=== PATIENT | female | born 2000 | race Caucasian/White ===

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

== ENCOUNTER 2022-01-08 15:12 | Outpatient (RCR) | payer OTHER, SELFPAY ==
--- NOTE | ~2022-01-08 | US_ITS ---
EXAMINATION: US OB BPP wo non-stress DATE: 01/08/2022 17:33 INDICATION: Nonreactive stress test in office. TECHNIQUE: Real-time ultrasound of the pelvis was performed. COMPARISON: 12/02/2021. FINDINGS: There is a single living fetus in vertex presentation, longitudinal lie. The placenta is anterior. F etal heart rate is 134 beats per minute (bpm). The amniotic fluid index is 12.9 cm (5th to 95th perce ntile is 7.7 to 24.9 cm). Biophysical profile performed by the technologist: breathing (30 sec sustained breathing in 30 minutes): 2 out of 2 movement (3 gross body movements in 30 minutes: 2 out of 2 tone (one episode of zhlotzb-fkwvsxrdm-ifdzbln limb movement): 2 out of 2 Amniotic fluid pocket (2 cm): 2 out of 2 Total score: 8 out of 8 IMPRESSION: 1. Single living fetus in vertex presentation. 2. Normal KARTIK. 3. Biophysical profile 8 out of 8. Reviewed, dictated and finalized at location K.
[2022-01-08 16:26] VITALS: BP 110/65; PULSE 77
== END 2022-04-08 23:59 | disposition home or self-care (01) ==
LOC: ANHOBOP 15:12
PROVIDERS: PCP Family Medicine; Visit Provider Advanced Practice Midwife
DX: O26.893 Other specified pregnancy related conditions, third trimester (principal); Z3A.36 36 weeks gestation of pregnancy
CPT/HCPCS: 59025; 76819

== ENCOUNTER 2022-01-17 11:11 | Outpatient (CLI) | payer OTHER, SELFPAY ==
[2022-01-17 12:00] VITALS: TEMP 36.6
--- NOTE | 2022-01-17 12:29 | PC.NURSE ---
Timbo HERNANDEZ informed of pt's arrival with c/o being in bed around 0900 this morning and feeling a sharp shooting pain that started in her groin and moved down the front of both legs- this happened twice and now pt feels some tingling in both her legs. Pt also noted some vaginal wetness around 1000 this am; ROM plus was negative. Pt having contractions she feels as non-painful tightening; denies any change from the contractions she has been having at home. NST reactive. Order received to discharge pt to home.
[2022-01-17 12:41] VITALS: BP 103/61; PULSE 74
== END 2022-01-17 12:42 | disposition home or self-care (01) ==
LOC: ANHOBOP 12:44 → ANHOBPP 12:46
PROVIDERS: PCP Family Medicine; Visit Provider Advanced Practice Midwife
DX: O42.90 Premature rupture of membranes, unspecified as to length of time between rupture and onset of labor, unspecified weeks of gestation (principal); Z3A.00 Weeks of gestation of pregnancy not specified
CPT/HCPCS: 59025; 84112; 99199

== ENCOUNTER 2022-01-20 10:45 | Inpatient (IN) | payer OTHER, SELFPAY ==
[2022-01-20] VITALS (149 sets, daily range): BP systolic 91–131; BP diastolic 33–93; PULSE 48–200; TEMP 36.3–37; O2SAT 93–100; BMI 31.4
--- OUTSIDE RECORDS SUMMARY | 2022-01-20 11:20 | XMS_ITS ---
:2002 Author Care Team Providers Name Role Phone MASTER FARIAS MD Primary Care Provider [phone] Allergies Code Code System Name Reaction Severity Status Onset 723 RxNorm Amoxicillin ? ? Active ? 1191 RxNorm Aspirin ? ? Active ? 666536 RxNorm Keflex ? ? Active ? 357100 RxNorm [place] ? ? Active ? 713493 RxNorm Prunes ? ? Active ? Sulfa (Sulfonamide ? ? Active ? Antibiotics) 1529974 RxNorm [place] ? ? Deactivated ? Medications Name Status Start Date Stop Date ? ? albuterol sulfate concentrate 5 mg/mL(0.5 %) solution for nebulization Completed 08/28/2015 06/25/2021 inhale 0.5 milliliter by inhalation route 3- 4 times every day via nebulizer albuterol sulfate HFA 90 mcg/actuation aerosol inhaler Active ? Not available INHALE 2 PUFFS BY MOUTH 4 TIMES A DAY NEEDED. USE 30 MINUTES PRIOR TO PE azithromycin 250 mg tablet Completed ? 07/25 carbamazepine 200 mg tablet Completed 08/28/201504/2021 take 1 tablet by oral route every 12 hours carbamazepine ER 200 mg capsule,extended release [id number] Comp leted ? 07/25/2021 PLEASE SEE ATTACHED FOR DETAILED DIRECTIONS cyclobenzaprine 10 mg tablet Completed ? TAKE 1 TABLET BY MOUTH EVERY 8 HOURS Depo-Provera 150 mg/mL intramuscular syringe Completed 06/201506/25/2021 inject 1 milliliter by intramuscular route every 3 months diazepam 12.5 mg-15 mg-17.5 mg-20 mg rectal kit Completed ? 07/25/2021 INSERT 17.5 MG INTO THE RECTUM NEEDED (FOR SEIZURE 5 MINUTES ) hydrocodone 5 mg-acetaminophen 325 mg tablet Active ? Not available TAKE 1 TABLET BY MOUTH EVERY 6 HOURS NEEDED
--- OUTSIDE RECORDS SUMMARY | 2022-01-20 11:20 | XMS_ITS | Encounter Summary ---
:2002 Author Care Team Providers Name Role Phone Coral Ching MD Primary Care Provider [phone] Reason for Visit OB visit OB [id number] EDC 02/01/2022 LMP 04/27/2021 Assessment and Plan Assessment Note Patient is __37_weeks . Discuss ed plan. 1. Routine care Discussion Note: None recorded.Patient educational handouts: No information available. Plan of Care Reminders Provider Appointments Ob Routine 01/22/2022 2:00PM Manasa mejias CNM ? Nst 01/22/2022 1:00PM Nst, , EQUIP ? U/S OB BPP 01/22/2022 1:30PM Ultrasound, TECH ? Induction 01/25/2022 5:00AM Manasa mejias CNM ? Ob Routine 01/29/2022 2:00PM Manasa mejias, CNM ? Nst 01/29/2022 1:00PM Nst, , EQUIP ? U/S OB BPP 01/29/2022 1:30PM Ultrasound, TECH Lab None recorded. ? ? Referral None recorded. ? ? Procedures None recorded. ? ? Surgeries None recorded. ? ? Imaging None recorded. ? ? Medications Name Start Date ? ? albuterol sulfate HFA 90 mcg/actuation aerosol inhaler ? INHALE 2 PUFFS BY MOUTH 4 TIMES A DAY NEEDED. USE 30 MINUTES PRIOR TO PE hydrocodone 5 mg-acetaminophen 325 mg tablet ? TAKE 1 TABLET BY MOUTH EVERY 6 HOURS NEEDED levothyroxine 75 mcg tablet ? TAKE 1 TABLET BY MOUTH IN THE MORNING O N EMPTY STOMACH 30 MINUTES BEFORE ANY OTHER FOOD/MEDICATION nitrofurantoin monohydrate/macrocrystals 100 mg capsul e ? Vitamin ? Medications Administered None recorded. Vitals Height Weight BMI Blood Pressure 5 ft 4 in 182 lbs 31.2 kg/m2 126/80 mm[Hg] Results
--- OUTSIDE RECORDS SUMMARY | 2022-01-20 11:20 | XMS_ITS | Encounter Summary ---
:2002 Author Care Team Providers Name Role Phone Coral Ching MD Primary Care Provider [phone] Reason for Visit OB visit Assessment and Plan Assessment Note Patient is ___weeks . Discussed plan. 1. Routine care Discussion Note: None recorded.Patient educational handouts: No information available. Plan of Care Reminders Provider Appointments Ob Routine 01/22/2022 2:00PM Manasa mejias CNM ? Nst 01/22/2022 1:00PM Nst, , EQUIP ? U/S OB BPP 01/22/2022 1:30PM Ultrasound, TECH ? Induction 01/25/2022 5:00AM Manasa mejias CNM ? Ob Routine 01/29/2022 2:00PM Manasa mejias CNM ? Nst 01/29/2022 1:00PM Nst, , [...] BMI Blood Pressure 5 ft 4 in 178 lbs 30.6 kg/m2 109/73 mm[Hg] Results Lab Results None
--- OUTSIDE RECORDS SUMMARY | 2022-01-20 11:20 | XMS_ITS | Encounter Summary ---
:2002 Author Care Team Providers Name Role Phone Coral Ching MD Primary Care Provider [phone] Reason for Visit None recorded. Assessment and Plan 1. Hyperthyroidism in ? non-stress test Discussion Note: None recorded.Patient educational handouts: No information available. Plan of Care Reminders Provider Appointments Ob Routine 01/22/2022 2:00PM Manasa mejias, CNM ? Nst 01/22/2022 1:00PM Nst, , EQUIP ? U/S OB BPP 01/22/2022 1:30PM Ultrasound, TECH ? Induction 01/25/2022 5:00AM Manasa mejias, CNM ? Ob Routine 01/29/2022 2:00PM Manasa mejias, CNM ? Nst 01/29/2022 1:00PM Nst, , EQUIP ? U/S OB BPP 01/29/2022 1:30PM Ultrasound, TECH Lab None recorded. ? ? Referral None recorded. ? ? Procedures None recorded. ? ? Surgeries None recorded. ? ? Imaging Non-stress Test 01/15/2022 [place] Medications Name Start Date ? ? albuterol [...] Vitamin ? Medications Administered None recorded. Vitals None recorded. Results Lab Results None recorded. Allergies Code Code System Name Reaction Severity Onset 723 RxNorm Amoxicillin ? ? ? 1191 RxNorm Aspirin ? ?
--- OUTSIDE RECORDS SUMMARY | 2022-01-20 11:20 | XMS_ITS | Encounter Summary ---
:2002 Author Care Team Providers Name Role Phone Coral Ching MD Primary Care Provider [phone] Reason for Visit OB visit OB [id number] EDC 02/01/2022 LMP 04/27/2021 Assessment and Plan Assessment Note Patient is __36_weeks . Discuss ed plan. 1. Routine care [...] BMI Blood Pressure 5 ft 4 in 181 lbs 31.1 kg/m2 104/62 mm[Hg] Results
--- OUTSIDE RECORDS SUMMARY | 2022-01-20 11:20 | XMS_ITS | Encounter Summary ---
:2002 Author Care Team Providers Name Role Phone Coral Ching MD Primary Care Provider [phone] Reason for Visit None recorded. Assessment and Plan 1. Pre-existing maternal disease compli cating ? US, obstetric, biophysical profile + non-stress test Discussion Note: None recorded.Patient educational handouts: No information available. Plan of Care Reminders Provider Appointments Ob Routine 01/22/2022 Manasa Houser , CNM 2:00PM ? Nst 01/22/2022 Nst, , EQUIP 1:00PM ? U/S OB BPP 01/22/2022 Ultrasound, [facility] 1:30PM ? Induction 01/25/2022 Manasa Houser , CNM 5:00AM ? Ob Routine 01/29/2022 Manasa Katze , CNM 2:00PM ? Nst 01/29/2022 Nst, , EQUIP 1:00PM ? U/S OB BPP 01/29/2022 Ultrasound, [facility] 1:30PM Lab None recorded. ? ? Referral None recorded. ? ? Procedures None recorded. ? ? Surgeries None recorded. ? ? Imaging US, Obstetric, Biophysical 12/25/2021 Deanna [place] Profile + Non-stress Test Medications Name Start Date ? ? albuterol [...]
--- OUTSIDE RECORDS SUMMARY | 2022-01-20 11:20 | XMS_ITS | Encounter Summary ---
:2002 Author Care Team Providers Name Role Phone Coral Ching MD Primary Care Provider [phone] Reason for Visit None recorded. Assessment and Plan 1. Hypothyroidism in ? non-stress test Discussion Note: None [...] None recorded. ? ? Imaging Non-stress Test 12/25/2021 [place] Medications Name Start Date ? ? albuterol [...]
--- OUTSIDE RECORDS SUMMARY | 2022-01-20 11:20 | XMS_ITS | Encounter Summary ---
:2002 Author Care Team Providers Name Role Phone Coral Ching MD Primary Care Provider [phone] Reason for Visit OB visit OB [id number] EDC 02/01/2022 LMP 04/27/2021 Assessment and Plan Assessment Note Patient is _35__weeks . Discuss ed plan. 1. Routine care [...] BMI Blood Pressure 5 ft 4 in 179 lbs 30.7 kg/m2 105/71 mm[Hg] Results
--- OUTSIDE RECORDS SUMMARY | 2022-01-20 11:20 | XMS_ITS | Encounter Summary ---
:2002 Author Care Team Providers Name Role Phone Coral Ching MD Primary Care Provider [phone] Reason for Visit OB visit Assessment and [...] ft 4 in 179 lbs 30.7 kg/m2 107/66 mm[Hg] Results Lab Results None
--- OUTSIDE RECORDS SUMMARY | 2022-01-20 11:20 | XMS_ITS | Encounter Summary ---
:2002 Author Care Team Providers Name Role Phone Coral Ching MD Primary Care Provider [phone] Reason for Visit OB visit OB [id number] EDC 02/01/2022 LMP 04/27/2021 Assessment and Plan Assessment Note Patient is _33_weeks . Discusse d plan. 1. Routine care Discussion Note: None [...] ft 4 in 181 lbs 31.1 kg/m2 99/64 mm[Hg] Results
--- OUTSIDE RECORDS SUMMARY | 2022-01-20 11:20 | XMS_ITS | Encounter Summary ---
:2002 Author Care Team Providers Name Role Phone Coral Ching MD Primary Care Provider [phone] Reason for Visit None recorded. Assessment and Plan 1. Hyperthyroidism in ? non-stress test Discussion Note: None recorded.Patient educational handouts: No information available. Plan of Care Reminders Provider Appointments Ob Routine 01/22/2022 2:00PM Manaas mejias, CNM ? Nst 01/22/2022 1:00PM Nst, [...] None recorded. ? ? Imaging Non-stress Test 01/08/2022 [place] Medications Name Start Date ? ? albuterol [...]
--- OUTSIDE RECORDS SUMMARY | 2022-01-20 11:20 | XMS_ITS | Encounter Summary ---
:2002 Author Care Team Providers Name Role Phone Coral Ching MD Primary Care Provider [phone] Reason for Visit None recorded. Assessment and Plan 1. Hyperthyroidism in ? US, obstetric, biophysical profile + non-stress test Discussion Note: None recorded.Patient educational handouts: No information available. Plan of Care Reminders Provider Appointments Ob Routine 01/22/2022 Manasa Houser , CNM 2:00PM ? Nst 01/22/2022 Nst, , EQUIP 1:00PM ? U/S OB BPP 01/22/2022 Ultrasound, [facility] 1:30PM ? Induction 01/25/2022 Manasajonathan oHuser , CNM 5:00AM ? Ob Routine 01/29/2022 Manasa Katze , CNM 2:00PM ? Nst 01/29/2022 Nst, , EQUIP 1:00PM ? U/S OB BPP 01/29/2022 Ultrasound, [facility] 1:30PM Lab None recorded. ? ? Referral None recorded. ? ? Procedures None recorded. ? ? Surgeries None recorded. ? ? Imaging US, Obstetric, Biophysical 01/15/2022 [place] Profile + Non-stress Test Medications Name Start [...]
--- OUTSIDE RECORDS SUMMARY | 2022-01-20 11:20 | XMS_ITS | Encounter Summary ---
:2002 Author Care Team Providers Name Role Phone Coral Ching MD Primary Care Provider [phone] Reason for Visit OB visit OB [id number] EDC 02/01/2022 LMP 04/27/2021 Assessment and Plan Assessment Note Patient is _31__weeks . Discuss ed plan. 1. Routine care [...] ft 4 in 181 lbs 31.1 kg/m2 103/67 mm[Hg] Results
--- OUTSIDE RECORDS SUMMARY | 2022-01-20 11:20 | XMS_ITS | Encounter Summary ---
:2002 Author Care Team Providers Name Role Phone Coral Ching MD Primary Care Provider [phone] Reason for Visit None recorded. Assessment and Plan 1. Uterine size for dates discrepancy ? US, obstetric, follow-up Discussion Note: None recorded.Patient educational handouts: No [...] None recorded. ? ? Imaging US, Obstetric, Follow-up 11/19/2021 Shaila car[place] Medications Name Start Date ? ? albuterol [...]
--- OUTSIDE RECORDS SUMMARY | 2022-01-20 11:21 | XMS_ITS ---
:2002 Author Care Team Providers Name Role Phone Coral Ching Primary Care Provider Unavailable Allergies Code Code System Name Reaction Severity Status Onset 1191 RxNorm Aspirin ? ? Active ? Penicillins ? ? Active ? Sulfa (Sulfonamide Antibiotics) ? ? Active ? Medications Name Status Start Date Stop Date ? ? albuterol sulfate 2.5 mg/3 mL (0.083 %) solution for Active ? Not available nebulization albuterol sulfate HFA 90 mcg/actuation aerosol inhaler Active ? Not available azithromycin 250 mg tablet Active ? Not a vailable azithromycin 500 mg tablet Active ? Not a vailable TAKE 1 TABLET BY MOUTH EVERY DAY FOR 10 DAYS benzonatate 100 mg capsule Active ? Not a vailable calcium carbonate 600 mg-vitamin D3 10 mcg (400 unit) Active ? Not available tablet carbamazepine 100 mg/5 mL oral suspension Active ? Not available TAKE 30 ML BY MOUTH TWICE DAILY FOR SEIZURES carbamazepine ER 200 mg capsule,extended release Active ? Not available [id number] cetirizine 10 mg tablet Active ? Not avai lable TAKE 1 TABLET BY MOUTH DAILY NEEDED FOR ALLERGY CONTROL ciprofloxacin 500 mg tablet Active ? Not available TAKE 1 TABLET BY MOUTH EVERY 12 HOURS FOR 10 DAYS clindamycin HCl 300 mg capsule Active ? N ot available TAKE ONE CAPSULE BY MOUTH 3 TIMES A DAY FOR 7 DAYS clonazepam 0.5 mg tablet Active ? Not isabela ilable TAKE 1 TABLET BY MOUTH TWICE A DAY compound drug Active ? Not available Condoms-Mohsne Lubricated Active ?
--- OUTSIDE RECORDS SUMMARY | 2022-01-20 11:21 | XMS_ITS ---
:2002 Author Care Team Providers Name Role Phone Coral Ching Primary Care Provider Unavailable Allergies Code Code System Name Reaction Severity Status Onset 723 RxNorm Amoxicillin ? ? Active ? 1191 RxNorm Aspirin ? ? Active ? 42231 RxNorm Guanfacine ? ? Active ? 584677 RxNorm Keflex ? ? Active ? Penicillins ? ? Active ? Sulfa (Sulfonamide ? ? Active ? Antibiotics) Notes: Some allergies listed in Docume nts: #[id number], #[id number], #[id number], #[id number], #[id number], #[id number], #[id number], #[id number], #[id number], #[id number], #[id number] could not be added to this patient's chart. Please re view these documents and add these allergies to the patient's chart manually as jarrod [email or web address]. Medications Name Status Start Date Stop Date ? ? albuterol sulfate 2.5 mg/3 mL (0.083 %) Completed ? 08/02/2019 solution for nebulization albuterol sulfate HFA 90 mcg/actuation aerosol inhaler Active ? Not available INHALE 2 PUFFS BY MOUTH 4 TIMES A DAY NEEDED. USE 30 MINUTES PRIOR TO PE Asmanex Twisthaler 110 mcg/actuation(30 doses) breath activa mauricio inhalr Unknown ? Not available USE 1 PUFF PO QD [place] Saline 0.65 % nasal spray aerosol Unknown ? Not available USE TWO SPRAYS IEN TID azithromycin 200 mg/5 mL oral suspension Unknown ? Not available SW AND G LAURIE 10ML PO ON DAY 1 THEN SW AND G LAURIE 5ML PO D ON DAYS 2 THRU 5 azithromycin 250 mg tablet Completed ? 04/02 azithromycin 500 mg tablet Completed ? 04/05 TAKE 1 TABLET BY MOUTH EVERY DAY FOR 10 DAYS
[2022-01-20 11:48] LABS: Basophils Percent Auto 0.2 % (0.2-1.2); Eosinophils Absolute Auto 0.1 K/mm3 (0-0.3); Eosinophils Percent Auto 1.1 % (0-4.4); Hematocrit 39.2 % (37.0-47.0); Hemoglobin 12.9 g/dL (12.0-15.0); Immature Granulocyte Absolute 0.03 K/mm3 (0.00-0.031); Immature Granulocyte Percent A 0.5 % (0-0.5); Lymphocytes Absolute Auto 1.42 K/mm3 (0.9-3.2); Lymphocytes Percent Auto 22.3 % (18.3-44.2); Mean Corpuscular HGB Conc 32.9 g/dl (32-36); Monocytes Absolute Auto 0.4 K/mm3 (0.1-0.6); Monocytes Percent Auto 5.8 % (2.6-8.5); Neutrophils Absolute Auto 4.5 K/mm3 (1.3-6.7); Neutrophils Percent Auto 70.1 % (45.5-73.1); Platelet Count Result 196 k/mm3 (150-375); Red Blood Count 4.61 M/mm3 (4.2-5.4); Red Cell Distribution Width 12.2 % (11.5-14.5); White Blood Count 6.4 K/mm3 (4.5-10.0)
[2022-01-20] MEDS: LACTATED RINGERS 1,000 ML 125 ML IV CONT (11:49)
[2022-01-20] MEDS: OXYTOCIN 30 UNITS/NS 500 ML 30 UNITS/500 ML BAG 6 UNITS IV CONT (11:51)
--- NOTE | 2022-01-20 12:15 | LDADM ---
This patient, Karen Obando, was admitted to Labor/Delivery/Recovery 104 on 01/20/22 at 10:45. Plans for labor, pain management and were discussed with patient. Patient/family oriented to hospital policies and general routines including ID bracelet, bed and alarms, visiting hours, pain management, procedures, bathroom and other care routines, personal items, smoking policy, room service/diet and guest tray routines, security routines, and visiting hours. Patient/Family are encouraged to report perceived risks to care and to ask questions if they do not understand what they are told or what they should do. See [facility] for further documentation.
[2022-01-20 12:33] LABS: Amphetamine Screen Urine Negative (Negative); Barbiturate Screen Urine Negative (Negative); Benzodiazepines Screen Urine Negative (Negative); Cannabinoid Screen Urine Negative (Negative); Cocaine Screen Urine Negative (Negative); Methadone Screen Urine Negative (Negative); Opiate Screen Urine Negative (Negative); Phencyclidine Screen Urine Negative (Negative)
[2022-01-20] MEDS: LACTATED RINGERS 1,000 ML 999 ML IV CONT ×2 (15:11→19:22)
--- NOTE | 2022-01-20 15:49 | WPDANESEPPF ---
Anes - Initial Pre Proc Eval Date/Time: 01/20/22 15:49 Surgeon: Otoniel Rich MD Pre Op Diagnosis: Induction of Labor Patient Data Age: 21 Gender: F Height: 1.63 m Weight: 83 kg Last Vital Signs Temp 36.7 C 01/20/22 14:00 Pulse 76 01/20/22 15:48 BP 102/73 01/20/22 15:48 Pulse Ox 99 01/20/22 15:48 Allergies Allergy/AdvReac Type Severity Reaction Status Date / Time Penicillins Allergy Severe HIVES Verified 12/02/21 08:05 amoxicillin Allergy Mild Swelling Verified 12/02/21 08:05 of Lip/Tongue/Throat cephalexin Allergy Mild Swelling Verified 12/02/21 08:05 of Lip/Tongue/Throat plum Allergy Mild Swelling Verified 12/02/21 08:05 of Lip/Tongue/Throat prunes Allergy Mild Swelling Verified 12/02/21 08:05 of Lip/Tongue/Throat Sulfa (Sulfonamide Allergy Mild Swelling Verified 12/02/21 08:05 Antibiotics) of Lip/Tongue/Throat cyproheptadine Allergy Unknown Unknown Verified 12/02/21 08:05 Home Medications Medication Instructions Recorded Confirmed Type levothyroxine 75 mcg tablet 75 mcg PO DAILY 04/02/21 01/20/22 History PNV 153-FA 400 mcg-om3 35 mg-dha 1 tablet PO BID 12/15/21 01/20/22 History 25 mg-epa 5 mg-fish oil chew tablet ( Gummies) Laboratory Tests 01/20/22 01/20/22 01/20/22 11:34 11:34 11:34 WBC 6.4 K/mm3 K/mm3 (4.5-10.0) RBC 4.61 M/mm3 M/mm3 (4.2-5.4) Hgb 12.9 g/dL g/dL (12.0-15.0) Hct 39.2 % % (37.0-47.0) MCV 85.0 fl fl (80-100) MCH 28.0 pg pg (26-34) MCHC 32.9 g/dl g/dl (32-36) RDW 12.2 % % (11.5-14.5) Plt Count 196 k/mm3 k/mm3 (150-375) MPV 11.0 fl H fl (7.4-10.4) Immature Gran % (Auto) 0.5 % % (0-0.5) Neut % (Auto) 70.1 % % (45.5-73.1) Lymph % (Auto) 22.3 % % (18.3-44.2) [place] % (Auto) 5.8 % % (2.6-8.5) Eos % (Auto) 1.1 % % (0-4.4) Baso % (Auto) 0.2 % % (0.2-1.2) Lymph # (Auto) 1.42 K/mm3 K/mm3 (0.9-3.2) [place] # (Auto) 0.4 K/mm3 K/mm3 (0.1-0.6) Eos # (Auto) 0.1 K/mm3 K/mm3 (0-0.3) Baso # (Auto) 0.0 K/mm3 K/mm3 (0.0-0.1) Abs Immat Gran (auto) 0.03 K/mm3 K/mm3 (0.00-0.031) Absolute Neuts (auto) 4.5 K/mm3 K/mm3 (1.3-6.7) Absolute Nucleated RBC 0.0 K/mm3 K/mm3 (0.0-0.012) Nucleated RBC % 0.0 % % (0.0-0.2) Urine Opiates Screen Negative (Negative) Urine Methadone Screen Negative (Negative) Ur Barbiturates Screen Negative (Negative) Ur Phencyclidine Scrn Negative (Negative) Ur Amphetamine Screen Negative (Negative) U Benzodiazepines Scrn Negative (Negative) Urine Cocaine Screen Negative (Negative) U Cannabinoids Screen Negative (Negative) RPR Pending Blood Type Antibody Screen 01/20/22 12:08 WBC RBC Hgb Hct MCV MCH MCHC RDW Plt Count MPV Immature Gran % (Auto) Neut % (Auto) Lymph % (Auto) [place] % (Auto) Eos % (Auto) Baso % (Auto) Lymph # (Auto) [place] # (Auto) Eos # (Auto) Baso # (Auto) Abs Immat Gran (auto) Absolute Neuts (auto) Absolute Nucleated RBC Nucleated RBC % Urine Opiates Screen Urine Methadone Screen Ur Barbiturates Screen Ur Phencyclidine Scrn Ur Amphetamine Screen U Benzodiazepines Scrn Urine Cocaine Screen U Cannabinoids Screen RPR Blood Type O Positive Antibody Screen Negative Patient hx anesthesia problems: post op nausea/vomiting Family hx anesthesia problems: none Results Review: All pre-operative results and documents have been reviewed as part of the
[2022-01-20] MEDS: ONDANSETRON INJ 4 MG/2 ML VIAL IV PUSH (22:03)
--- NOTE | 2022-01-20 22:45 | WPDOBADMIT ---
Obstetrics - Admit Note Admission Note: record reviewed. No pertinent additions to the history and/or any subsequent changes in the physical findings that are not consistent with the expected course of the were found. 38 weeks, SROM, admitted, anticipate vaginal delivery Additions to the history and/or subsequent changes in the physical findings follow. None.
--- NOTE | 2022-01-20 23:26 | PM.OBPRVD ---
OB - Delivery Note Procedure Delivery date: 01/20/22 Procedure: Induction method: None Delivery augmentation: Pitocin Delivery monitor: External FHT and Internal Uterine Route of delivery: Laceration Description: Perineal - 1st Degree Delivery repair: vicryl Specimen: Yes Quantitative Blood Loss (ml): 100 Anesthesia type: Epidural Disposition: Floor Narrative: mom and baby stable and doing skin to skin Baby Date of : 01/20/22 Weeks of gestation at delivery: 38 Infant gender: Male Weight (pounds): 6 Weight (ounces): 12 presentation: vertex position: Left Occiput Anterior Placenta delivery description: Spontaneous Cord Vessel Description: 3 Vessels, Clamped/Cut and Delayed Cord Clamping score one minute: 8 score five minutes: 9
[2022-01-20] MEDS: OXYTOCIN 30 UNITS/NS 500 ML 30 UNITS/500 ML BAG 125 UNITS IV CONT (23:52)
[2022-01-21] VITALS (12 sets, daily range): BP systolic 95–118; BP diastolic 53–74; PULSE 55–102; RESP 16–18; TEMP 36.4–37.2; O2SAT 95–99
[2022-01-21] MEDS: WITCH HAZEL 40 PADS 1 PAD TOPICAL (01:34)
[2022-01-21] MEDS: BENZOCAINE 20% AER SPR (*SP) 56 GM CAN 1 SPRAY TOPICAL (01:34)
--- NOTE | 2022-01-21 01:55 | OBPPTRN ---
Patient transferred to post room #292 via W/C. Support person present. Oriented to unit, room, information board, rooming in, admission packet and security measures. Patient verbalizes understanding.
[2022-01-21 05:32] LABS: Hematocrit 34.1 % (37.0-47.0); Hemoglobin 11.4 g/dL (12.0-15.0)
[2022-01-21 07:08] LABS: Rapid Plasma Reagin Non-Reactive (NonReactive)
[2022-01-21] MEDS: LEVOTHYROXINE SODIUM 75 MCG TABLET PO (07:51)
[2022-01-21] MEDS: DOCUSATE SODIUM 100 MG CAPSULE PO ×2 (07:51→16:13)
--- NOTE | 2022-01-21 08:05 | P.PNOB_ITS ---
OB - PN: Subj Subjective Date/time seen: 01/21/22 08:05 Patient comments: no complaints, pain well controlled, incisional pain, tolerating diet and flatus present OB - PN: Obj Data Labs CBC & Chem 7: 01/21/22 05:22 Labs: Laboratory Results - last 24 hr 01/20/22 01/20/22 01/20/22 11:34 11:34 11:34 WBC 6.4 RBC 4.61 Hgb 12.9 Hct 39.2 MCV 85.0 MCH 28.0 MCHC 32.9 RDW 12.2 Plt Count 196 MPV 11.0 H Immature Gran % (Auto) 0.5 Neut % (Auto) 70.1 Lymph % (Auto) 22.3 [place] % (Auto) 5.8 Eos % (Auto) 1.1 Baso % (Auto) 0.2 Lymph # (Auto) 1.42 [place] # (Auto) 0.4 Eos # (Auto) 0.1 Baso # (Auto) 0.0 Abs Immat Gran (auto) 0.03 Absolute Neuts (auto) 4.5 Absolute Nucleated RBC 0.0 Nucleated RBC % 0.0 Urine Opiates Screen Negative Urine Methadone Screen Negative Ur Barbiturates Screen Negative Ur Phencyclidine Scrn Negative Ur Amphetamine Screen Negative U Benzodiazepines Scrn Negative Urine Cocaine Screen Negative U Cannabinoids Screen Negative RPR Non-reactive Blood Type Antibody Screen 01/20/22 01/21/22 12:08 05:22 WBC RBC Hgb 11.4 L Hct 34.1 L MCV MCH MCHC RDW Plt Count MPV Immature Gran % (Auto) Neut % (Auto) Lymph % (Auto) [place] % (Auto) Eos % (Auto) Baso % (Auto) Lymph # (Auto) [place] # (Auto) Eos # (Auto) Baso # (Auto) Abs Immat Gran (auto) Absolute Neuts (auto) Absolute Nucleated RBC Nucleated RBC % Urine Opiates Screen Urine Methadone Screen Ur Barbiturates Screen Ur Phencyclidine Scrn Ur Amphetamine Screen U Benzodiazepines Scrn Urine Cocaine Screen U Cannabinoids Screen RPR Blood Type O Positive Antibody Screen Negative OB - PN A/P Plan day: 1 Plan: routine care Comments: No problems, routine care Time Spent With Patient Time: Total time spent is greater than 50% in coordination of care (as documented) at patient's floor/unit and/or counseling patient: Exam Const: General: comfortable, no acute distress and alert Resp: Effort & Inspection: normal respiratory effort Auscultation: no crackles, no rales and no rhonchi Cardio: Rate: regular rate Heart sounds: no click, no murmurs and no rubs GI: Inspection: non-distended GI Palp: No Tenderness to palpation present (GI) Auscultation: normal bowel sounds Other: Incision - CDI Extrem: General: normal to inspection, no pedal edema and no calf tenderness
--- NOTE | 2022-01-21 10:25 | WPDANLDPN2 ---
Anes-Prog Note L&D Date/Time: 01/21/22 10:25 Comfortable throughout: labor and delivery Neuraxial method: epidural Epidural/Spinal procedure site: clean & non-tender Neuro status: Neuro function grossly intact. Cardiovascular status: normal Respiratory status: normal Airway patency: baseline Mental status: baseline Post-Op hydration status: normal Vital Signs: Last Vital Signs Temp 36.4 C L 01/21/22 07:25 Pulse 72 01/21/22 07:25 Resp 16 01/21/22 07:25 BP 110/65 01/21/22 07:25 Pulse Ox 99 01/21/22 07:25 O2 Del Method Room Air 01/21/22 07:55 Pain score (VAS): 2 I/O: Intake & Output 01/20/22 01/21/22 01/21/22 23:59 07:59 15:59 Intake Total 1500 500 Output Total 400 98 Balance 1100 402 Patient feedback: Patient satisfied with anesthetic care.
[2022-01-21] MEDS: SIMETHICONE 80 MG TAB.CHEW PO (20:50)
[2022-01-21] MEDS: ACETAMINOPHEN 325 MG TABLET 650 MG PO (22:59)
[2022-01-21] MEDS: IBUPROFEN 600 MG TABLET PO (22:59)
--- NOTE | 2022-01-22 07:25 | PM.OBPNVD ---
OB - PN: Subj Subjective Date/time seen: 01/22/22 07:25 s/p vaginal delivery day 2 OB - PN: Obj Data Labs CBC & Chem 7: 01/21/22 05:22 OB - PN A/P Plan day: 2 Time Spent With Patient Time: Total time spent is greater than 50% in coordination of care (as documented) at patient's floor/unit and/or counseling patient: Review of Systems Review of Systems: All systems reviewed & are unremarkable except as noted in HPI and below Exam Const: General: cooperative, healthy appearing and comfortable
--- NOTE | 2022-01-22 07:27 | PM.OBDSVD ---
DS: Admitting Diagnosis Discharge Date 01/22/22 Admitting Diagnosis srom OB - DS: Summary OB Procedures : None OB Procedures Intrapartum: Spontaneous Vag Delivery OB Procedures: : None Time Spent with Patient Time attestation: Total time spent providing and/or coordinating discharge services: DS: Data Data Completed and Pending Pending studies at discharge: Pending at discharge 01/20/22 23:17 Surgical [PTH] Routine Discharge Plan Discharge Attending physician on discharge: Otoniel Rich Discharging Clinician: Manasa Houser Patient Disposition: Home, Self-Care Activity: pelvic rest Diet: regular Discharge Instructions: Education: Mom and Baby Guide Given to: Mother Follow-Up: Call your delivering provider's office for an appointment to be seen in: 4 Weeks Mom and baby should come to the [facility] for the follow-up appointment. Appointment Date/Time: January 23, 2022 at 11:00 am What to expect at your follow-up visit: Blood Pressure Check Call [phone] if you are unable to keep your appointment time. BREAST CARE: * Wear a snug supportive bra. * For engorgement discomfort: Bottle Feeding: * May apply ice packs PERINEAL CARE: * Until bleeding stops, use your ileana bottle after urinating * Change your pad frequently throughout the day * You may take sitz baths several times a day (fill your bathtub with warm water and soak for 20 minutes.) Do NOT bathe in the water * No tub baths until seen by your physician - You may shower ACTIVITY: * Rest as much as possible. * Do not exercise or lift anything heavier than your baby (such as laundry or other children.) * Avoid stairs or driving as much as possible. * Do not put anything into the vagina. No douching, tampons, or sexual activity until seen by physician. NOTIFY PHYSICIAN IF YOU HAVE ANY QUESTIONS OR IF ANY OF THE FOLLOWING SYMPTOMS OCCUR: * If your perineum becomes red, swollen, or more painful than what you have experienced in the hospital. * If your vaginal bleeding becomes foul smelling. * If your vaginal bleeding becomes more heavy than a period or if your bleeding changes from pink to bright red. However, you may pass an occasional walnut-sized clot once or twice for the first week . * If you experience a sharp, shooting pain in you calves. * If you discover a hard, reddened area on your breast or if you experience flu-like symptoms. * If you have a fever of 100.4 or greater . DIET: * Eat regular, well-balanced meals. * Drink plenty of fluids daily. If , drink to thirst. Patient Instructions: Antibiotic Form Stand Alone Forms: General Discharge Information Follow-up/Referrals: Manasa Housre CNM [Certified Nurse Supervisor Filling And Packing] - 4 Weeks Discharge Medications: New ibuprofen 600 mg Tablet 600 mg PO Q6H PRN (Reason: Cramping) Qty: 30 0RF Continued levothyroxine 75 mcg tablet 75 mcg PO DAILY Gummies 400 mcg-35 mg- 25 mg-5 mg Tablet,Chewable 1 tablet PO BID Date of admission: 01/20/22 10:45 Primary Care Provider: Humza,Coral Henry Admitting Provider: Otoniel Rich Attending physician on admission: Otoniel Rich Condition: Stable
[2022-01-22 07:55] VITALS: BP 114/66; PULSE 51; RESP 16; TEMP 36.3; O2SAT 100
[2022-01-22 10:30] VITALS: PULSE 51; RESP 16; O2SAT 100
[2022-01-22] MEDS: DOCUSATE SODIUM 100 MG CAPSULE PO (10:31)
[2022-01-22] MEDS: MULTIVIT/MIN/PREN/FOL AC/IRON TABLET 1 TAB PO (10:31)
[2022-01-22] MEDS: LEVOTHYROXINE SODIUM 75 MCG TABLET PO (10:31)
--- NOTE | 2022-01-22 12:00 | PC.NURSE ---
PT received discharge instructions per protocol and verbalized understanding of such care
--- NOTE | 2022-01-22 12:40 | PC.NURSE ---
Infant discharged to home ambulatory accompanied by her mother and and taken to waiting car. follow up appts confirmed
[2022-01-23 11:51] VITALS: BP 115/67; PULSE 70; RESP 20; TEMP 36.7; O2SAT 98
== END 2022-01-22 12:40 | disposition home or self-care (01) | DRG 560 ==
LOC: ANHLDR 11:18 → ANHOB2 01-21 02:06
PROVIDERS: Advanced Practice Midwife; Admitting Provider Obstetrics & Gynecology; PCP Family Medicine; Visit Provider Obstetrics & Gynecology
DX: O70.0 First degree perineal laceration during delivery (principal); Z37.0 Single live birth; Z3A.38 38 weeks gestation of pregnancy
CPT/HCPCS: 36415; 80307; 84112; 85014; 85018; 85025; 86592; 86850; 86900; 86901; 88307; A9270; J2405; J2590; J2795; J7120

== ENCOUNTER 2022-04-03 11:58 | Emergency (ER) | payer OTHER, SELFPAY ==
--- NOTE | ~2022-04-03 | XR_ITS ---
XR ankle RT min 3V DATE: 04/03/2022 13:05 INDICATION: Fall. Anterior lower leg pain TECHNIQUE: 3 views COMPARISON: None FINDINGS: No fracture or dislocation, periosteal reaction or bone destruction. No disruption of the a nkle mortise. IMPRESSION: Negative Reviewed, dictated and finalized at location B. E BUYER IMPRESSION: Negative
--- NOTE | ~2022-04-03 | XR_ITS ---
EXAMINATION: XR tibia fibula RT 2V DATE: 04/03/2022 13:05 INDICATION: Right ankle and anterior right lower leg pain post fall TECHNIQUE: 1. Anteroposterior and lateral views of the right tibia and fibula were obtained. 2. Anteroposterior, oblique, mortise, and lateral views of the right ankle were obtained. COMPARISON: None. FINDINGS: Bone alignment is normal from the right knee through the visualized foot. No fractures. Small sclerot ic bone islands with typical ovoid orientation aligned along the trabecular axis at the distal tibia and fibula. Joint spaces are normal. Soft tissues are unremarkable. No right knee or ankle joint effu kaelyn. IMPRESSION: 1. Small bone islands at the ankle. Otherwise normal right ankle and tibia/fibula radiographs. Reviewed, dictated and finalized at location A. RIFUGE SEPARATOR OPERATOR IMPRESSION: 1. Small bone islands at the ankle. Otherwise normal right ankle and tibia/fibu la radiographs.
[2022-04-03 12:38] VITALS: BP 105/62; PULSE 76; RESP 16; TEMP 36.5; O2SAT 99
--- NOTE | 2022-04-03 13:54 | ED.LOWEXIN ---
HPI - Extremity Injury (Lower) General Chief Complaint: Extremity Injury, Lower Stated Complaint: right leg pain-fell down stairs Time Seen by Provider: 04/03/22 13:10 History of Present Illness HPI Narrative: 21-year-old female no medical problems presents to the emergency room for evaluation of vasquez pain. Patient states that she was walking down the stairs when she slipped and fell striking her vasquez on the stair and twisting her right ankle. Patient amatory following the injury. Related Data Home Medications Medication Instructions Recorded Confirmed levothyroxine 75 mcg tablet 75 mcg PO DAILY 04/02/21 01/20/22 PNV 153-FA 400 mcg-om3 35 mg-dha 1 tablet PO BID 12/15/21 01/20/22 25 mg-epa 5 mg-fish oil chew tablet ( Gummies) Allergies Allergy/AdvReac Type Severity Reaction Status Date / Time Penicillins Allergy Severe HIVES Verified 12/02/21 08:05 amoxicillin Allergy Mild Swelling Verified 12/02/21 08:05 of Lip/Tongue/Throat cephalexin Allergy Mild Swelling Verified 12/02/21 08:05 of Lip/Tongue/Throat plum Allergy Mild Swelling Verified 12/02/21 08:05 of Lip/Tongue/Throat prunes Allergy Mild Swelling Verified 12/02/21 08:05 of Lip/Tongue/Throat Sulfa (Sulfonamide Allergy Mild Swelling Verified 12/02/21 08:05 Antibiotics) of Lip/Tongue/Throat cyproheptadine Allergy Unknown Unknown Verified 12/02/21 08:05 Review of Systems Review of Systems: CONSTITUTIONAL: Denies fever, chills, or sweats. EYES: Denies visual changes, redness, or discharge. ENT: Denies rhinorrhea, congestion, sore throat, or otalgia. CARDIOVASCULAR: Denies chest pain, palpitations, or edema. RESPIRATORY: Denies cough or dyspnea. GASTROINTESTINAL: Denies abdominal pain, nausea, vomiting, or diarrhea. GENITOURINARY: Denies dysuria or hematuria. SKIN: Denies rash or itching. MUSCULOSKELETAL: Right lower extremity discomfort NEUROLOGIC: Denies headache, numbness, dizziness, or weakness. PSYCHIATRIC: Denies anxiety or depression. [facility] Past Medical History Medical History History of asthma History of seizure disorder Hypertension Family History Family History Mother Gallbladder problem Epilepsy Grandparent Epilepsy Social History Social History Smoking status: Never smoker Second hand tobacco smoke exposure: No Substance use: current Last use: 12/29/2021 Gender identity (if verbalized by the patient): Female Spiritual care concerns: No Exam Narrative: GENERAL: Well-appearing, well-nourished, no physical limitations, and in no acute distress. HEAD: Normocephalic, atraumatic. EYES: Conjunctivae normal, PERRLA and EOMI. CHEST: Clear to auscultation. No respiratory distress. No wheezes rales or rhonchi. HEART: Regular rate and rhythm. No murmur heard. Normal peripheral pulses. EXTREMITIES: RLE: +TTP to anterior vasquez, no bony abnormality. Small area of ecchymosis. No soft tissue swelling SKIN: Warm, dry, no rash. No noted wounds NEURO: No focal deficits. Alert and oriented x3. MAEW. CN's II-XI intact bilaterally, normal gait PSYCH: Cooperative. Normal mood and affect. Course Vital Signs Vital signs: Vital Signs Temperature 36.5 C 04/03/22 12:38 Pulse Rate 76 04/03/22 12:38 Respiratory Rate 16 04/03/22 12:38 Blood Pressure 105/62 04/03/22 12:38 Pulse Oximetry 99 04/03/22 12:38 Oxygen Delivery Room Air 04/03/22 12:38 Temperature 36.5 C 04/03/22 12:38 Pulse Rate 76 04/03/22 12:38 Respiratory Rate 16 04/03/22 12:38 Blood Pressure 105/62 04/03/22 12:38 Pulse Oximetry 99 04/03/22 12:38 Oxygen Delivery Room Air 04/03/22 12:38 Discharge Plan Discharge Clinical Impression: Contusion of right tibia Patient Disposition: Home, Self-Care Condit
== END 2022-04-03 14:48 | disposition home or self-care (01) ==
LOC: ANHED 14:27
PROVIDERS: Emergency Provider Nurse Practitioner Family; PCP Family Medicine
DX: S80.11XA Contusion of right lower leg, initial encounter (principal); J45.909 Unspecified asthma, uncomplicated; G40.909 Epilepsy, unspecified, not intractable, without status epilepticus; I10 Essential (primary) hypertension; W10.9XXA Fall (on) (from) unspecified stairs and steps, initial encounter
CPT/HCPCS: 73590; 73610; 99284

== ENCOUNTER 2022-09-12 15:53 | Outpatient (CLI) | payer OTHER, SELFPAY ==
--- NOTE | ~2022-09-12 | US_ITS ---
EXAMINATION: US thyroid DATE: 09/12/2022 16:46 INDICATION: Goiter TECHNIQUE: Multiple ultrasound images of the thyroid were obtained. COMPARISON: None. FINDINGS: The right thyroid lobe measures 4.1 x 1.3 x 1.7 cm. The left thyroid lobe measures 4.2 x 1.0 x 1.4 c m. Thyroid isthmus measures 4-5 mm in thickness.. There is heterogeneous echogenicity and mildly coa rsened echotexture of the thyroid parenchyma without discrete nodule. IMPRESSION: 1. Nonspecific heterogeneous echogenicity and mildly coarsened echotexture of the thyroid without dis crete nodules. Reviewed, dictated and finalized at location A. IMPRESSION: 1. Nonspecific heterogeneous echogenicity and mildly coarsened echotexture of t he thyroid without discrete nodules.
== END 2022-09-12 15:54 | disposition home or self-care (01) ==
LOC: ANHIMG 15:54
PROVIDERS: PCP Family Medicine; Visit Provider Nurse Practitioner Family
DX: E04.9 Nontoxic goiter, unspecified (principal)
CPT/HCPCS: 76536

== ENCOUNTER 2022-09-25 15:40 | Outpatient (CLI) | payer OTHER, SELFPAY ==
[2022-09-25 16:07] LABS: Hematocrit 40.3 % (37.0-47.0); Hemoglobin 13.6 g/dL (12.0-15.0); Mean Corpuscular HGB Conc 33.7 g/dl (32-36); Mean Corpuscular Hemoglobin 26.8 pg (26-34); Mean Corpuscular Volume 79.5 fl (80-100); Mean Platelet Volume 9.7 fl (7.4-10.4); Platelet Count Result 269 k/mm3 (150-375); Red Blood Count 5.07 M/mm3 (4.2-5.4); Red Cell Distribution Width 12.7 % (11.5-14.5); White Blood Count 7.1 K/mm3 (4.5-10.0)
[2022-09-25 16:21] LABS: Alanine Aminotransferase 22 U/L (6-35); Albumin Level 4.3 g/dL (3.5-5.1); Alkaline Phosphatase 85 U/L (38-126); Anion Gap 7 mmol/L (8-16); Aspartate Amino Transferase 24 U/L (14-36); Bilirubin,Total 0.9 mg/dL (0.2-1.3); Blood Urea Nitrogen 11 mg/dL (7-17); Calcium 8.8 mg/dL (8.4-10.2); Carbon Dioxide 27 mmol/L (22-30); Chloride 107 mmol/L (98-107); Estimated Glomerular Filt Rate > 60; Glucose 92 mg/dL (65-110); Potassium 3.9 mmol/L (3.4-5.0); Sodium 141 mmol/L (137-145)
== END 2022-09-25 15:41 | disposition home or self-care (01) ==
LOC: ANHLAB 15:42
PROVIDERS: PCP Family Medicine; Visit Provider Nurse Practitioner Family
DX: R19.7 Diarrhea, unspecified (principal)
CPT/HCPCS: 36415; 80053; 85027

== ENCOUNTER 2022-10-07 09:29 | Outpatient (CLI) | payer OTHER, SELFPAY ==
--- NOTE | ~2022-10-07 | US_ITS ---
US abdomen limited INDICATION: Right upper quadrant pain PROCEDURE: Realtime right upper abdominal ultrasound. COMPARISON: No prior studies for comparison. FINDINGS: The pancreas is normal without focal mass or pancreatic ductal dilation. Liver echotexture is normal without focal mass or intrahepatic biliary dilatation. There is normal directional flow i n the portal vein. The gallbladder is normal without stones, gallbladder wall thickening or pericholecystic fluid. Comm on bile duct measures 3 mm. No sonographic Drake's sign. IMPRESSION: 1: Normal limited abdominal ultrasound. Previously visualized gallstones not seen on current study. Reviewed, dictated and finalized at location L. IMPRESSION: 1: Normal limited abdominal ultrasound. Previously visualized gallstones not se en on current study.
== END 2022-10-07 09:30 | disposition home or self-care (01) ==
LOC: ANHIMG 09:32
PROVIDERS: PCP Family Medicine; Visit Provider Nurse Practitioner Family
DX: R10.11 Right upper quadrant pain (principal)
CPT/HCPCS: 76705

== ENCOUNTER 2022-10-17 02:12 | Day surgery (SDC) | payer OTHER, SELFPAY ==
[2022-10-10 12:09] VITALS: BMI 33.0
--- NOTE | 2022-10-16 13:19 | WPDANESEPPF ---
Anes - Initial Pre Proc Eval Procedure: Operation Date: 10/17/22 13:15 Proposed Procedures p Esophagogastroduodenoscopy & Colonoscopy - Adolfo Gerard MD Date/Time: 10/16/22 13:19 Surgeon: Adolfo Gerard MD Pre Op Diagnosis: diarrhea,Right Upper Quadrant pain,Nausea,vomiting Patient Data Age: 22 Gender: F Height: 1.63 m Weight: 87.5 kg Allergies Allergy/AdvReac Type Severity Reaction Status Date / Time Penicillins Allergy Severe HIVES Verified 10/17/22 11:49 amoxicillin Allergy Mild Swelling Verified 10/17/22 11:49 of Lip/Tongue/Throat cephalexin Allergy Mild Swelling Verified 10/17/22 11:49 of Lip/Tongue/Throat plum Allergy Mild Swelling Verified 10/17/22 11:49 of Lip/Tongue/Throat prunes Allergy Mild Swelling Verified 10/17/22 11:49 of Lip/Tongue/Throat Sulfa (Sulfonamide Allergy Mild Swelling Verified 10/17/22 11:49 Antibiotics) of Lip/Tongue/Throat cyproheptadine Allergy Unknown Unknown Verified 10/17/22 11:49 Home Medications Medication Instructions Recorded Confirmed Type levothyroxine 75 mcg tablet 75 mcg PO DAILY 04/02/21 10/17/22 History albuterol sulfate 90 mcg/actuation 1 inh inhalation Q4-6H PRN 08/28/22 10/17/22 History breath activated powder inhaler Shortness Of Breath cholestyramine (with sugar) 4 gram 4 g PO BID #378 grams 09/01/22 10/17/22 Rx oral powder carbamazepine 100 mg 100 mg PO Q12H 09/25/22 10/17/22 History tablet,extended release,12 hr dicyclomine 20 mg tablet See Rx Instructions .Route 09/29/22 10/17/22 Rx .COMPLEX #90 tabs Patient hx anesthesia problems: none Family hx anesthesia problems: none Results Review: All pre-operative results and documents have been reviewed as part of the pre-operative evaluation. [facility] Past Medical History Medical History Diarrhea History of asthma History of seizure disorder Hypertension Obese Rectal bleeding RUQ pain Thyroid activity decreased Surgical History Surgical History H/O dilation and curettage History of tonsillectomy Family History Family History Mother Epilepsy Grandparent Epilepsy Other Diabetes mellitus Hypertension Social History Social History Smoking packs per day: 0.5 Smoking cigarettes per day: 10.0 Years smoked: 5 Smoking pack-years: 2.50 Smoking status: Current every day smoker Tobacco type: cigarettes Second hand tobacco smoke exposure: No Smoking end date: 01/25/22 Alcohol intake: current Alcohol use details: RARE Substance use: current Substance use type: marijuana Other substance usage details: Smokes marijuana Last use: 10/10/22 Living arrangements: with friend(s) Additional living arrangements comments: BOYFRIEND Occupation/Education: occupation Additional occupation/education comments: [employer] Gender identity (if verbalized by the patient): Female Spiritual care concerns: No Anes - Eval Final PreProcedure Day of Procedure 10/16/22 13:19 Patient weight: obese Heart: regular rate and rhythm Lungs: clear to auscultation Airway: Mallampati scale class II Neurological: alert and oriented Last oral intake: >/= 8 hours ASA classification: III Emergent: no Anesthetic plan: proceed Anesthesia type and monitoring: general GIVS and standard monitoring Results Review: All pre-operative results and documents have been reviewed as part of the pre-operative evaluation. Informed Consent: The patient's anesthetic plan and its attendant risks and benefits were discussed with the patient/family/POA. Questions were solicited and answers provided to the satisfaction of the patient/family/POA.
[2022-10-17] VITALS (9 sets, daily range): BP systolic 72–124; BP diastolic 32–76; PULSE 61–73; RESP 15–26; TEMP 36.2; O2SAT 98–100
[2022-10-17] MEDS: LACTATED RINGERS 1,000 ML 150 ML IV CONT (12:06)
--- NOTE | 2022-10-17 12:42 | WPDHPUPDATE1 ---
History and Physical Update Update Date/Time: 10/17/22 12:42 History and Physical has been reviewed, including an updated exam of the patient. There are NO changes in the patient's condition. Risks, benefits, and alternatives have been discussed and questions answered. Patient agrees to proceed with procedure.
--- NOTE | 2022-10-17 13:01 | SUR.OPER ---
egd ended at 1256 and colonoscopy started at 1301
[2022-10-17] MEDS: ALBUTEROL SULFATE NEB 2.5 MG/3 ML INH 1.25 MG INHALATION (13:36)
== END 2022-10-17 14:10 | disposition home or self-care (01) ==
PROVIDERS: PCP Family Medicine; Visit Provider Internal Medicine Gastroenterology
PROC: 0DJ08ZZ Inspection of Upper Intestinal Tract, Via Natural or Artificial Opening Endoscopic (ICD-10-PCS; CPT 43235; principal; 2022-10-17 13:15)
DX: K29.70 Gastritis, unspecified, without bleeding (principal); K64.8 Other hemorrhoids; D12.2 Benign neoplasm of ascending colon; R10.11 Right upper quadrant pain; R11.2 Nausea with vomiting, unspecified; R74.8 Abnormal levels of other serum enzymes; K62.5 Hemorrhage of anus and rectum; K80.20 Calculus of gallbladder without cholecystitis without obstruction; E66.9 Obesity, unspecified; I10 Essential (primary) hypertension
CPT/HCPCS: 45380; 45385; 36415; 80156; 82150; 86850; 86900; 86901; 88305; 88342; 94640; J2001; J2405; J2704; J3010; J7120

== ENCOUNTER 2022-10-17 10:50 | Outpatient (CLI) | payer OTHER, SELFPAY ==
[2022-10-17 12:26] LABS: Amylase 81 U/L (30-110)
[2022-10-22 12:57] LABS: Carbamazepine Tegretol 0.9 mcg/mL (4.0-12.0)
== END 2022-10-17 10:51 | disposition home or self-care (01) ==
LOC: ANHSURGERY 10:51
PROVIDERS: Anesthesiology; PCP Family Medicine; Visit Provider Surgery
DX: K80.20 Calculus of gallbladder without cholecystitis without obstruction (principal); Z79.899 Other long term (current) drug therapy; Z01.818 Encounter for other preprocedural examination
CPT/HCPCS: 36415; 80156; 82150; 86850; 86900; 86901

== ENCOUNTER 2022-10-24 05:08 | Day surgery (SDC) | payer OTHER, SELFPAY ==
--- NOTE | 2022-10-17 10:48 | PC.NURSE ---
Report to the Outpatient Waiting Room, entrance under the green pavilion located off [facility], at time 11:00 on date 10/24/22. Planned Procedure Time: 1:00. Time changes happen often and if your time is changed the preop area will call you the afternoon before. - You and your visitor will be asked to self-screen and do not enter if you have any COVID symptoms. - A mask is optional within the hospital at this time. Patients may have clear liquids (water, carbonated beverages, clear teas, apple juice) until 3 hours prior to surgery (10:00) with a maximum of 20 ounces. - No food from midnight until time of surgery Take the following medications with a SIP of water the morning of surgery: INHALER IF NEEDED, CARBAMAZEPINE, LEVOTHYROXINE DO NOT STOP ANY OF YOUR OTHER PRESCRIPTION MEDICATIONS PRIOR TO SURGERY ?EXCEPT THE FOLLOWING Medications to discontinue per physician: N/A Date to take last dose: N/A Please no make-up, nail hebrew, hairspray, perfume, deodorant, or body powder the day of surgery. No jewelry (including any body piercings) or valuables the day of surgery, leave them at home. Please take a shower or bath the night before, or the morning of, surgery with an antibacterial soap (HIBICLENS). Wear comfortable, loose fitting clothing. - Jewelry must be removed prior to entering the operating room. Rings and piercings that are not removed may be cut off. - The hospital will not accept responsibility for valuables. - Please leave all valuables, including medications, at home the day of surgery. If you are going home after surgery, a licensed [employer] hazmat company driver must drive you home. - NO public transportation without another adult if you receive anesthesia. - We recommend that an adult stay with you for 24 hours following discharge. - We also recommend that you do not drive, make important decision, drink alcoholic beverages, or take any drugs that were not prescribed by your health care provider for at least 24 hours after your discharge time. Follow any additional instructions given to you from your surgeon. If you or anyone in your household have experienced Covid symptoms in the past week, please notify your surgeon or the nurse liaison at the phone number below for possible testing. Telephone instructions given to PT - LAURIE and asked if any additional questions and then verbalized understanding. Patient advised to call surgeon office or pre surgery nurse liaison [phone] if any additional questions.
[2022-10-17 10:52] VITALS: BMI 33.0
[2022-10-24] VITALS (8 sets, daily range): BP systolic 116–137; BP diastolic 55–75; PULSE 60–89; RESP 11–24; TEMP 36.1–37.1; O2SAT 100
--- NOTE | 2022-10-24 12:43 | WPDHPUPDATE1 ---
History and Physical Update Update Date/Time: 10/24/22 12:43 History and Physical has been reviewed, including an updated exam of the patient. There are NO changes in the patient's condition. Risks, benefits, and alternatives have been discussed and questions answered. Patient agrees to proceed with procedure.
[2022-10-24] MEDS: ACETAMINOPHEN 500 MG TABLET 1000 MG PO (12:51)
--- NOTE | 2022-10-24 13:12 | WPDANESEPPF ---
Anes - Initial Pre Proc Eval Procedure: Operation Date: 10/24/22 14:30 Proposed Procedures p Laparoscopic Cholecystectomy, Possible Open - John Hallman DO Date/Time: 10/24/22 13:12 Surgeon: John Hallman DO Pre Op Diagnosis: symp cholelithiasis Patient Data Age: 22 Gender: F Height: 1.63 m Weight: 87.5 kg Allergies Allergy/AdvReac Type Severity Reaction Status Date / Time Penicillins Allergy Severe HIVES Verified 10/24/22 12:45 amoxicillin Allergy Mild Swelling Verified 10/24/22 12:45 of Lip/Tongue/Throat cephalexin Allergy Mild Swelling Verified 10/24/22 12:45 of Lip/Tongue/Throat plum Allergy Mild Swelling Verified 10/24/22 12:45 of Lip/Tongue/Throat prunes Allergy Mild Swelling Verified 10/24/22 12:45 of Lip/Tongue/Throat Sulfa (Sulfonamide Allergy Mild Swelling Verified 10/24/22 12:45 Antibiotics) of Lip/Tongue/Throat cyproheptadine Allergy Unknown Unknown Verified 10/24/22 12:45 Home Medications Medication Instructions Recorded Confirmed Type levothyroxine 75 mcg tablet 75 mcg PO DAILY 04/02/21 10/17/22 History albuterol sulfate 90 mcg/actuation 1 inh inhalation Q4-6H PRN 08/28/22 10/17/22 History breath activated powder inhaler Shortness Of Breath cholestyramine (with sugar) 4 gram 4 g PO BID #378 grams 09/01/22 10/17/22 Rx oral powder carbamazepine 100 mg 100 mg PO Q12H 09/25/22 10/17/22 History tablet,extended release,12 hr dicyclomine 20 mg tablet See Rx Instructions .Route 09/29/22 10/17/22 Rx .COMPLEX #90 tabs Patient hx anesthesia problems: none Family hx anesthesia problems: none Results Review: All pre-operative results and documents have been reviewed as part of the pre-operative evaluation. FOR[facility]LY [facility] Past Medical History Medical History (Updated 10/24/22 @ 13:32 by Jose Muniz DO) Diarrhea History of asthma History of seizure disorder has had seizures after waking up from dental procedure and tonsillectomy. Most recent surgery 04/2022 Hypertension Obese Rectal bleeding RUQ pain Thyroid activity decreased Surgical History Surgical History H/O dilation and curettage History of tonsillectomy Family History Family History Mother Epilepsy Grandparent Epilepsy Other Diabetes mellitus Hypertension Social History Social History Smoking packs per day: 0.5 Smoking cigarettes per day: 10.0 Years smoked: 5 Smoking pack-years: 2.50 Smoking status: Current every day smoker Tobacco type: cigarettes Second hand tobacco smoke exposure: No Smoking end date: 01/25/22 Alcohol intake: current Alcohol use details: RARE Substance use: current Substance use type: marijuana Other substance usage details: Smokes marijuana Last use: 10/10/22 Living arrangements: with friend(s) Additional living arrangements comments: BOYFRIEND Occupation/Education: occupation Additional occupation/education comments: [employer] Gender identity (if verbalized by the patient): Female Spiritual care concerns: No Anes - Eval Final PreProcedure Day of Procedure 10/24/22 13:12 Patient weight: obese Heart: regular rate and rhythm Lungs: clear to auscultation Airway: Mallampati scale class II Neurological: alert and oriented Last oral intake: >/= 8 hours ASA classification: III Emergent: no Anesthetic plan: proceed Anesthesia type and monitoring: general ETT and standard monitoring Results Review: All pre-operative results and documents have been reviewed as part of the pre-operative evaluation. Informed Consent: The patient's anesthetic plan and its attendant risks and benefits were discussed with the patient/family/POA. Questions were solicited and answers provided to the satisfaction of the clemente
[2022-10-24] MEDS: LACTATED RINGERS 1,000 ML 30 ML IV CONT ×2 (13:17→15:58)
[2022-10-24] MEDS: KETOROLAC 15 MG/ML VIAL (*BKC) IV PUSH (13:18)
[2022-10-24] MEDS: CLINDAMYCIN 900 MG/D5W 50 ML 900 MG/50 ML PIGGYBACK 50 MG IVPB (13:59)
--- NOTE | 2022-10-24 14:50 | W.PM.PROC2 ---
Procedure Note - Detailed Date of Procedure 10/24/22 Pre-op Diagnosis Symptomatic cholelithiasis Post-op Diagnosis Same Procedure Performed Laparoscopic Cholecystectomy Surgeon John Hallman, DO Anesthesia General and Local (0.5% bupivacaine) Indications This is a 22-year-old woman who presented with episodes of right upper quadrant pain with nausea and vomiting. She was initially noted to have the symptoms while she was and ultrasound showed evidence of cholelithiasis. She has since delivered her baby but is still having occasional symptoms. Discussions were made with the patient about treatment options and decision was made to proceed with laparoscopic cholecystectomy, possible open. Findings Laparoscopic cholecystectomy was performed. The gallbladder had a few pericholecystic adhesions. The cystic duct appeared normal in size. No other intra-abdominal abnormalities were noted. The gallbladder was removed and sent to the lab for pathology. Description of Procedure Procedure as well as risks, benefits, and alternatives were discussed with patient. Written consent was obtained and placed in chart prior to procedure. The patient was brought back to surgical suite. Patient was placed in supine position on operating table. Time-out was done to confirm patient and procedure. Patient was then intubated by the anesthesia department. Abdomen was prepped and draped in sterile fashion using chlorhexidine prep. 0.5% bupivacaine with epinephrine was infiltrated at each site of incision. A 5 millimeter incision was made near the umbilicus, and a 5 millimeter Optiview trocar was advanced through the abdominal layers under direct visualization. Once inside the abdominal cavity, carbon dioxide was insufflated to create a pneumoperitoneum. The camera was inserted and the abdomen was inspected. No immediate abnormalities were identified. The patient was placed in reverse Trendelenburg position and rotated slightly to the left. An 11 millimeter incision was made in the subxiphoid region, and an 11 millimeter trocar was inserted under direct visualization. Two 5 millimeter incisions were made in the right upper quadrant, and two 5 millimeter trocars were inserted under direct visualization. The gallbladder was identified and grasped at the fundus and retracted superiorly. It was then grasped at the infundibulum retracted laterally. Careful dissection around the neck of the gallbladder was performed using blunt dissection with a [place] grasper and hook electrocautery. The cystic duct was identified, and a window was created behind it. The cystic artery was also identified and a window was created behind it. The critical view of safety was identified, visualizing the cystic duct running directly into the neck of the gallbladder, and the cystic artery running directly into the wall of the gallbladder. A 5 millimeter clip gas appliance mechanic was then used to place 2 clips proximally and 1 clip distally on both the cystic duct and cystic artery. They were then both transected using endoscopic scissors. Once safely away from the khadijah hepatitis, the gallbladder was dissected free from the liver bed using hook electrocautery. Hemostasis was achieved along the way. The gallbladder was removed completely and then removed through the subxiphoid port. The liver bed was then inspected. Hemostasis appeared adequate, and our clips appeared secure. The area was gently irrigated with sterile saline. No other abnormalities were seen. The patient was flattened out in bed, and 1 final inspection was made around the abdominal cavity. The subxiphoid port was removed, and a Juwan Mick cone was used to approximate the fascia with an 0-Vicryl simple interrupted suture. The remaining ports were then removed under direct visualization, the camera was removed, and the pneumoperitoneum was released. The skin of the incisions was approximated using 4-0 Monocryl subcuticular sutur
[2022-10-24] MEDS: fentaNYL CITRATE INJ (*CRX) 100 MCG/2 ML VIAL 25 MCG IV PUSH (15:16)
[2022-10-24] MEDS: ONDANSETRON INJ 4 MG/2 ML VIAL IV PUSH (15:40)
[2022-10-24] MEDS: diphenhydrAMINE HCl INJ 50 MG/ML VIAL 25 MG IV PUSH (16:12)
[2022-10-24] MEDS: oxyCODONE HCL (*CRX) 5 MG TAB IR PO (16:25)
== END 2022-10-24 16:53 | disposition home or self-care (01) ==
PROVIDERS: PCP Family Medicine; Visit Provider Surgery
PROC: 0FT44ZZ Resection of Gallbladder, Percutaneous Endoscopic Approach (ICD-10-PCS; CPT 47562; principal; 2022-10-24 14:30)
DX: K80.10 Calculus of gallbladder with chronic cholecystitis without obstruction (principal); I10 Essential (primary) hypertension; G40.909 Epilepsy, unspecified, not intractable, without status epilepticus; E66.9 Obesity, unspecified; Z68.33 Body mass index [BMI] 33.0-33.9, adult; F17.210 Nicotine dependence, cigarettes, uncomplicated
CPT/HCPCS: 47562; 88304; A9270; J1100; J1200; J1885; J2250; J2405; J2704; J2710; J3010; J7030; J7120

== ENCOUNTER 2022-10-26 18:44 | Emergency (ER) | payer OTHER, SELFPAY ==
[2022-10-26] VITALS (13 sets, daily range): BP systolic 118–125; BP diastolic 67–74; PULSE 64–80; RESP 13–21; TEMP 36.5; O2SAT 98–100
--- NOTE | ~2022-10-26 | XR_ITS ---
EXAMINATION: XR chest 2V DATE: 10/26/2022 19:19 INDICATION: Shortness of breath. TECHNIQUE: frontal and lateral views of the chest were obtained. COMPARISON: Chest radiograph dated 08/17/2020 FINDINGS: The lungs remain clear with no focal airspace opacities, pulmonary edema, pleural effusion or pneumot horax. The cardiomediastinal silhouette is normal. Cholecystectomy clips in right upper quadrant. Vis ualized bones and soft tissues are unremarkable. IMPRESSION: 1. No acute cardiopulmonary disease. Reviewed, dictated and finalized at location A.
--- NOTE | ~2022-10-26 | CT_ITS ---
EXAMINATION: CTA chest PE protocol DATE: 10/26/2022 21:14 INDICATION: Chest pain, shortness of breath and recent surgery. TECHNIQUE: Computed tomography (CT) pulmonary angiogram of the chest was performed with 100 mL Omnipa que-350 intravenous contrast. Additional 3D reconstructions utilizing coronal maximum intensity proje ction (MIP) were performed. Automated exposure control and iterative reconstruction technique were em ployed. The dose-length product was 593.80 mGy-cm. COMPARISON: None FINDINGS: . contrast opacification of the pulmonary arteries. There is mild streak and motion artifact which do es not significantly limit evaluation. No pulmonary nodules in . No pneumonia, pulmonary edema, pleur al effusion or pneumothorax. Heart size is normal. No pericardial effusion. There is residual thymic tissue in the anterior mediastinum. No pathologically enlarged thoracic lymphadenopathy. There is a m inimal amount of free intraperitoneal gas below the right hemidiaphragm mild right, minimal amount of gas within the anterolateral inferior right thoracic wall and a couple surgical clips the gallbladde r fossa consistent with reported recent cholecystectomy. A few Schmorl's nodes in the lower thoracic spine. IMPRESSION: 1. No pulmonary embolism or other acute cardiopulmonary disease. Reviewed, dictated and finalized at location A.
--- NOTE | 2022-10-26 18:49 | ECG_ITS ---
Measurements Intervals [place] Rate: 75 P: 36 MS: 151 QRS: 40 QRSD: 87 T: 36 QT: 363 QTc: 407 Interpretive Statements SINUS RHYTHM WITH SINUS ARRHYTHMIA BASELINE ARTIFACT- I, II, AVR, AVL, AVF NORMAL ECG COMPARED TO ECG 08/17/2020 21:33:57 NO SIGNIFICANT CHANGES Electronically Signed On 10-26-2022 21:33:04 CDT by Major Her D.O.
--- NOTE | 2022-10-26 18:59 | PC.NURSE ---
Pt had her gallbladder removed on Thursday and was sent home with hydrocodone. States that she last took a hydrocodone about an hour prior to arrival hoping it would help with symptoms. States she feels she has not been breathing 'right' since the surgery, but states her dyspnea started around 1000 this morning. States she took a breathing treatment with no relief.
--- NOTE | 2022-10-26 19:01 | ED.SOB ---
HPI - SOB/Dyspnea General Chief Complaint: Shortness of Breath/Dyspnea Stated Complaint: SOB AFTER SURGERY Time Seen by Provider: 10/26/22 18:49 Source: patient Mode of arrival: ambulatory Limitations: no limitations History of Present Illness HPI Narrative: This is a 22-year-old female that presents to the emergency department for difficulty breathing. Reports she has had some trouble breathing since her recent cholecystectomy 2 days ago. This is associated with some sharp pain that radiates into her chest and arms. She has been taking her Iaeger with little relief. Denies fever, cough or vomiting. Related Data Home Medications Medication Instructions Recorded Confirmed levothyroxine 75 mcg tablet 75 mcg PO DAILY 04/02/21 10/17/22 albuterol sulfate 90 mcg/actuation 1 inh inhalation Q4-6H PRN 08/28/22 10/17/22 breath activated powder inhaler Shortness Of Breath carbamazepine 100 mg 100 mg PO Q12H 09/25/22 10/17/22 tablet,extended release,12 hr Allergies Allergy/AdvReac Type Severity Reaction Status Date / Time Penicillins Allergy Severe HIVES Verified 10/26/22 18:50 amoxicillin Allergy Mild Swelling Verified 10/26/22 18:50 of Lip/Tongue/Throat cephalexin Allergy Mild Swelling Verified 10/26/22 18:50 of Lip/Tongue/Throat plum Allergy Mild Swelling Verified 10/26/22 18:50 of Lip/Tongue/Throat prunes Allergy Mild Swelling Verified 10/26/22 18:50 of Lip/Tongue/Throat Sulfa (Sulfonamide Allergy Mild Swelling Verified 10/26/22 18:50 Antibiotics) of Lip/Tongue/Throat cyproheptadine Allergy Unknown Unknown Verified 10/26/22 18:50 Review of Systems Review of Systems: CONSTITUTIONAL: Denies fever CARDIOVASCULAR: Reports chest pain. Denies palpitations, or edema. RESPIRATORY: Reports dyspnea. Denies cough GASTROINTESTINAL: Reports abdominal pain. Denies nausea, vomiting All systems reviewed & are unremarkable except as noted in HPI and below PMFSH Past Medical History Medical History (Updated 10/26/22 @ 21:41 by Adri Bender PA-C) Diarrhea History of asthma History of seizure disorder has had seizures after waking up from dental procedure and tonsillectomy. Most recent surgery 04/2022 Hypertension Obese Rectal bleeding RUQ pain Thyroid activity decreased Surgical History Surgical History H/O dilation and curettage History of tonsillectomy Family History Family History Mother Epilepsy Grandparent Epilepsy Other Diabetes mellitus Hypertension Social History Social History Smoking packs per day: 0.5 Smoking cigarettes per day: 10.0 Years smoked: 5 Smoking pack-years: 2.50 Smoking status: Current every day smoker Tobacco type: cigarettes Second hand tobacco smoke exposure: No Smoking end date: 01/25/22 Alcohol intake: current Alcohol use details: RARE Substance use: current Substance use type: marijuana Other substance usage details: Smokes marijuana Last use: 10/10/22 Living arrangements: with friend(s) Additional living arrangements comments: BOYFRIEND Occupation/Education: occupation Additional occupation/education comments: [employer] Gender identity (if verbalized by the patient): Female Spiritual care concerns: No Exam Narrative: GENERAL: Well-appearing, well-nourished, and in no acute distress. HEAD: Normocephalic, atraumatic. EYES: EOMI. CHEST: Clear to auscultation. No respiratory distress. No wheezes rales or rhonchi HEART: Regular rate and rhythm. No murmur heard. Normal peripheral pulses. ABDOMEN: Soft, nondistended, normal active bowel sounds. Incisions are clean, dry and intact without surrounding erythema or any abnormal drainage. Mild tenderness to palpation throughout the abdomen, without guarding EXTREMIT
[2022-10-26 19:16] LABS: Basophils Percent Auto 0.2 % (0.2-1.2); Eosinophils Absolute Auto 0.3 K/mm3 (0-0.3); Hematocrit 40.1 % (37.0-47.0); Hemoglobin 13.1 g/dL (12.0-15.0); Immature Granulocyte Absolute 0.02 K/mm3 (0.00-0.031); Immature Granulocyte Percent A 0.2 % (0-0.5); Lymphocytes Absolute Auto 2.58 K/mm3 (0.9-3.2); Lymphocytes Percent Auto 27.5 % (18.3-44.2); Mean Corpuscular HGB Conc 32.7 g/dl (32-36); Mean Corpuscular Hemoglobin 26.7 pg (26-34); Mean Corpuscular Volume 81.7 fl (80-100); Mean Platelet Volume 9.6 fl (7.4-10.4); Monocytes Absolute Auto 0.6 K/mm3 (0.1-0.6); Monocytes Percent Auto 6.5 % (2.6-8.5); Neutrophils Absolute Auto 5.9 K/mm3 (1.3-6.7); Neutrophils Percent Auto 62.6 % (45.5-73.1); Platelet Count Result 227 k/mm3 (150-375); Red Blood Count 4.91 M/mm3 (4.2-5.4); White Blood Count 9.4 K/mm3 (4.5-10.0)
[2022-10-26 19:25] LABS: Alanine Aminotransferase 29 U/L (6-35); Albumin Level 4.6 g/dL (3.5-5.1); Alkaline Phosphatase 89 U/L (38-126); Anion Gap 8 mmol/L (8-16); Aspartate Amino Transferase 28 U/L (14-36); Bilirubin,Total 0.7 mg/dL (0.2-1.3); Blood Urea Nitrogen 8 mg/dL (7-17); Calcium 9.4 mg/dL (8.4-10.2); Carbon Dioxide 25 mmol/L (22-30); Chloride 106 mmol/L (98-107); Estimated CRCL calculation 121 ml/min; Estimated Glomerular Filt Rate > 60; Glucose 82 mg/dL (65-110); Potassium 3.8 mmol/L (3.4-5.0); Sodium 139 mmol/L (137-145)
[2022-10-26 19:27] LABS: Prothrombin Time 13.6 Seconds (11.1-14.7)
[2022-10-26 19:28] LABS: Partial Thromboplastin Time 26.8 SECONDS (22.3-36.8)
[2022-10-26 19:37] LABS: Troponin I < 0.012 ng/mL (0.000-0.034)
[2022-10-26] MEDS: KETOROLAC 15 MG/ML VIAL (*BKC) IV PUSH (21:59)
== END 2022-10-26 22:24 | disposition home or self-care (01) ==
PROVIDERS: Emergency Provider Physician Assistant; PCP Family Medicine
DX: R06.00 Dyspnea, unspecified (principal); G89.18 Other acute postprocedural pain; F17.210 Nicotine dependence, cigarettes, uncomplicated; I10 Essential (primary) hypertension
CPT/HCPCS: 36415; 71046; 71275; 80053; 81025; 84484; 85025; 85610; 85730; 93005; 96374; 99284; J1885; Q9967

== ENCOUNTER 2023-03-24 14:39 | Emergency (ER) | payer OTHER, SELFPAY ==
--- NOTE | ~2023-03-24 | CT_ITS ---
EXAMINATION: CT abdomen pelvis w con DATE: 03/24/2023 16:46 INDICATION: Abdominal pain. Nausea, vomiting, and diarrhea. TECHNIQUE: Computed tomography (CT) of the abdomen and pelvis was performed with 100 mL Omnipaque 350 intravenous contrast. Automated exposure control and iterative reconstruction technique were employe d. The dose-length product was 639.72 mGy-cm. COMPARISON: Abdomen ultrasound 10/07/2022 FINDINGS: The visualized portions of the lung bases are clear without pneumonia or pleural effusion. The heart size is normal. No pericardial effusion. The liver is normal. There are changes of cholecys tectomy. The pancreas, spleen, adrenal glands, and kidneys are normal. There are no dilated loops of bowel. There is liquid stool in the colon correlating with the symptom of diarrhea. The appendix is n ormal. There are no pathologically enlarged lymph nodes. There is no free intraperitoneal fluid. Ther e is mild lumbar spondylosis. IMPRESSION: 1. No etiology for the patient's symptoms. Reviewed, dictated and finalized at location A. SHAMPOOER
[2023-03-24 14:49] VITALS: BP 117/82; PULSE 99; RESP 18; TEMP 36.2; O2SAT 100
--- NOTE | 2023-03-24 16:14 | ED.GENADULT ---
HPI - General Adult General Chief complaint: Nausea/Vomiting/Diarrhea Stated complaint: vomiting Time Seen by Provider: 03/24/23 15:14 History of Present Illness HPI narrative: Karen Obando is a 22 y/o female who presents with reports of having diarrhea that started 2 days ago, she states that she started to have nausea vomiting that started yesterday and has not been able to keep anything down since 2 days ago. She states maybe a fever yesterday/ mild cough that started yesterday. She states she is having a lot of abdominal pain on the right lower and right middle abdomen that started last night and rates it at an 8/10 today Related Data Home Medications Medication Instructions Recorded Confirmed levothyroxine 75 mcg tablet 75 mcg PO DAILY 04/02/21 11/07/22 albuterol sulfate 90 mcg/actuation 1 inh inhalation Q4-6H PRN 08/28/22 11/07/22 breath activated powder inhaler Shortness Of Breath carbamazepine 100 mg 100 mg PO Q12H 09/25/22 11/07/22 tablet,extended release,12 hr Allergies Allergy/AdvReac Type Severity Reaction Status Date / Time Penicillins Allergy Severe HIVES Verified 11/07/22 08:22 amoxicillin Allergy Mild Swelling Verified 11/07/22 08:22 of Lip/Tongue/Throat cephalexin Allergy Mild Swelling Verified 11/07/22 08:22 of Lip/Tongue/Throat plum Allergy Mild Swelling Verified 11/07/22 08:22 of Lip/Tongue/Throat prunes Allergy Mild Swelling Verified 11/07/22 08:22 of Lip/Tongue/Throat Sulfa (Sulfonamide Allergy Mild Swelling Verified 11/07/22 08:22 Antibiotics) of Lip/Tongue/Throat cyproheptadine Allergy Unknown Unknown Verified 11/07/22 08:22 Review of Systems Review of Systems: CONSTITUTIONAL: Reports fever that started yesterday denies chills, or sweats. EYES: Denies visual changes, redness, or discharge. ENT: Denies rhinorrhea, congestion, sore throat, or otalgia. CARDIOVASCULAR: Denies chest pain, palpitations, or edema. RESPIRATORY: Denies cough or dyspnea. GASTROINTESTINAL: Reports right lower and right mid abdominal pain, with nausea and vomiting that started yesterday and diarrhea that started 2 days ago. GENITOURINARY: Denies dysuria or hematuria. SKIN: Denies rash or itching. MUSCULOSKELETAL: Denies back pain, joint pain, or myalgia. NEUROLOGIC: Denies headache, numbness, dizziness, or weakness. PSYCHIATRIC: Denies anxiety or depression. PMFSH Past Medical History Medical History Diarrhea History of asthma History of seizure disorder has had seizures after waking up from dental procedure and tonsillectomy. Most recent surgery 04/2022 Hypertension Obese Rectal bleeding RUQ pain Thyroid activity decreased Surgical History Surgical History H/O dilation and curettage History of tonsillectomy Hx laparoscopic cholecystectomy 10/24/22 Family History Family History Mother Epilepsy Grandparent Epilepsy Other Diabetes mellitus Hypertension Social History Social History Smoking packs per day: 0.5 Smoking cigarettes per day: 10.0 Years smoked: 5 Smoking pack-years: 2.50 Smoking status: Current every day smoker Tobacco type: cigarettes Second hand tobacco smoke exposure: No Smoking end date: 01/25/22 Alcohol intake: current Alcohol use details: RARE Substance use: current Substance use type: marijuana Other substance usage details: Smokes marijuana Last use: 10/10/22 Living arrangements: with friend(s) Additional living arrangements comments: BOYFRIEND Occupation/Education: occupation Additional occupation/education comments: [employer] Gender identity (if verbalized by the patient): Female Spiritual care concerns: No Exam Narrative: GENERAL: Well-appearing, well-nourished
[2023-03-24 16:22] LABS: Basophils Percent Auto 0.1 % (0.2-1.2); Eosinophils Percent Auto 0.4 % (0-4.4); Hematocrit 44.5 % (37.0-47.0); Immature Granulocyte Absolute 0.05 K/mm3 (0.00-0.031); Immature Granulocyte Percent A 0.5 % (0-0.5); Lymphocytes Absolute Auto 0.97 K/mm3 (0.9-3.2); Lymphocytes Percent Auto 9.8 % (18.3-44.2); Mean Corpuscular HGB Conc 33.7 g/dl (32-36); Mean Corpuscular Hemoglobin 27.6 pg (26-34); Mean Platelet Volume 9.8 fl (7.4-10.4); Monocytes Absolute Auto 0.5 K/mm3 (0.1-0.6); Monocytes Percent Auto 4.8 % (2.6-8.5); Neutrophils Absolute Auto 8.4 K/mm3 (1.3-6.7); Neutrophils Percent Auto 84.4 % (45.5-73.1); Platelet Count Result 227 k/mm3 (150-375); Red Blood Count 5.43 M/mm3 (4.2-5.4); Red Cell Distribution Width 12.5 % (11.5-14.5); White Blood Count 9.9 K/mm3 (4.5-10.0)
[2023-03-24] MEDS: KETOROLAC 30 MG/ML VIAL (*BKC) IV PUSH (16:24)
[2023-03-24] MEDS: DICYCLOMINE HCL INJ 20 MG/2 ML VIAL IM (16:24)
[2023-03-24] MEDS: FAMOTIDINE 20 MG/2 ML VIAL IV PUSH (16:24)
[2023-03-24] MEDS: ONDANSETRON INJ 4 MG/2 ML VIAL IV PUSH (16:25)
[2023-03-24] MEDS: SODIUM CHLORIDE 0.9% IV 1,000 ML 999 ML IV CONT (16:25)
[2023-03-24 16:26] LABS: Appearance Urine Cloudy (Clear); Bacteria Urine Rare /hpf; Bilirubin Urine Negative (Negative); Blood Urine Negative (Negative); Color Urine Dark Yellow (Yellow); Glucose Urine UA Negative (Negative); Ketones Urine Negative (Negative); Leukocyte Esterase Ur Negative LEU/UL (Negative); Nitrate Urine Negative (Negative); Non Pathogenic Casts 0-2; Protein Urine 1+ mg/dL (Negative); RBC Urine 0-2 /hpf (0-2); Squamous Epithelial Cell Urine Few /hpf (Few); WBC Urine 0-5 /hpf
[2023-03-24 16:31] LABS: Lipase 86 U/L (23-300)
[2023-03-24 16:32] LABS: Alanine Aminotransferase 31 U/L (6-35); Albumin Level 4.7 g/dL (3.5-5.1); Alkaline Phosphatase 86 U/L (38-126); Anion Gap 15 mmol/L (8-16); Aspartate Amino Transferase 30 U/L (14-36); Bilirubin,Total 1.6 mg/dL (0.2-1.3); Blood Urea Nitrogen 12 mg/dL (7-17); Calcium 9.4 mg/dL (8.4-10.2); Carbon Dioxide 22 mmol/L (22-30); Chloride 101 mmol/L (98-107); Estimated CRCL calculation 163 ml/min; Estimated Glomerular Filt Rate > 60; Glucose 90 mg/dL (65-110); Potassium 3.8 mmol/L (3.4-5.0); Sodium 138 mmol/L (137-145)
[2023-03-24 16:33] LABS: Add Urine Microscopic? YES; Specific Grav Ur 1.037 (1.001-1.035)
[2023-03-24 16:35] VITALS: BP 128/66; PULSE 88; RESP 16; O2SAT 98
[2023-03-24 16:35] LABS: Lactic Acid Reflex 1.5 mmol/L (0.7-2.0)
[2023-03-24 16:59] LABS: Influenza A QL RT-PCR Negative (Negative); Influenza B QL RT-PCR Negative (Negative); RSV RNA, RT-PCR Negative (Negative); SARS-CoV-2 RNA PCR Negative (Negative)
[2023-03-24 17:45] VITALS: BP 120/80; PULSE 84; RESP 18; TEMP 36.6; O2SAT 98
[2023-03-24 18:29] VITALS: BP 120/70; PULSE 78; RESP 18; TEMP 36.7; O2SAT 98
== END 2023-03-24 18:32 | disposition home or self-care (01) ==
PROVIDERS: Emergency Medicine; Emergency Provider Nurse Practitioner Family; PCP Family Medicine
DX: K52.9 Noninfective gastroenteritis and colitis, unspecified (principal); Z20.822 Contact with and (suspected) exposure to COVID-19; F17.210 Nicotine dependence, cigarettes, uncomplicated; J45.909 Unspecified asthma, uncomplicated; I10 Essential (primary) hypertension
CPT/HCPCS: 36415; 74177; 80053; 81001; 81025; 83605; 83690; 85025; 87637; 96361; 96372; 96374; 96375; 99284; J0500; J1885; J2405; J7030; Q9967

== ENCOUNTER 2023-11-04 14:23 | Outpatient (CLI) | payer OTHER, SELFPAY ==
[2023-11-08 07:17] LABS: Carbamazepine Tegretol <0.2 mcg/mL (4.0-12.0)
== END 2023-11-04 14:24 | disposition home or self-care (01) ==
PROVIDERS: Anesthesiology; PCP Family Medicine; Visit Provider Obstetrics & Gynecology
DX: G40.909 Epilepsy, unspecified, not intractable, without status epilepticus (principal)
CPT/HCPCS: 36415; 80156

== ENCOUNTER 2023-11-09 00:40 | Day surgery (SDC) | payer OTHER, SELFPAY ==
[2023-11-03 15:50] VITALS: BMI 30.9
--- NOTE | 2023-11-03 15:57 | PC.NURSE ---
Report to the Outpatient Waiting Room, entrance under the green pavilion located off [facility], at time _0700_ on date _[id number]_. Planned Procedure Time: _0900_. Time changes happen often and if your time is changed the preop area will call you the afternoon before. - You and your visitor will be asked to self-screen and do not enter if you have any COVID symptoms. - A mask is optional within the hospital at this time. Patients may have clear liquids (water, carbonated beverages, clear teas, apple juice) until 3 hours prior to surgery with a maximum of 20 ounces. - No food from midnight until time of surgery Take the following medications with a SIP of water the morning of surgery: ___Carbamazepine and Levothyroxine DO NOT STOP ANY OF YOUR OTHER PRESCRIPTION MEDICATIONS PRIOR TO SURGERY ?EXCEPT THE FOLLOWING Medications to discontinue per physician None Date to take last dose Please no make-up, nail french, hairspray, perfume, deodorant, or body powder the day of surgery. No jewelry (including any body piercings) or valuables the day of surgery, leave them at home. Please take a shower or bath the night before, or the morning of, surgery with an antibacterial soap. Wear comfortable, loose fitting clothing. - Jewelry must be removed prior to entering the operating room. Rings and piercings that are not removed may be cut off. - The hospital will not accept responsibility for valuables. - Please leave all valuables, including medications, at home the day of surgery. If you are going home after surgery, a licensed tier truck driver must drive you home. - NO public transportation without another adult if you receive anesthesia. - We recommend that an adult stay with you for 24 hours following discharge. - We also recommend that you do not drive, make important decision, drink alcoholic beverages, or take any drugs that were not prescribed by your health care provider for at least 24 hours after your discharge time. Follow any additional instructions given to you from your surgeon. If you or anyone in your household have experienced Covid symptoms in the past week, please notify your surgeon or the nurse liaison at the phone number below for possible testing. Telephone instructions given to _Keturah_and asked if any additional questions and then verbalized understanding. Patient advised to call surgeon office or pre surgery nurse liaison [phone] if any additional questions.
--- NOTE | 2023-11-09 07:50 | PM.IMHP ---
H&P: HPI History of Present Illness Date/Time: 11/09/23 07:50 Chief Complaint: irregular bleeding, cervical polyp Narrative: Patient is a 23 year old female who presents for hysteroscopy and cervical polypectomy indicated for 10mm cervical polyp found on ultrasound. Patient reports overall amenorrheic due to Depo injections, however recently has had some irregular bleeding. Discussed risks and benefits of expectant management vs surgical removal of the polyp. Patient desires surgical removal of polyp. Discussed given large size of polyp and vascular stalk at the upper cervical canal, recommend hysteroscopic removal to ensure complete removal of the stalk to decrease risk of recurrence. Patient voices understanding. Denies abdominal pain, nausea, vomiting, fevers or chills. Review of Systems Review of Systems: All systems reviewed & are unremarkable except as noted in HPI and below PMFSH Past Medical History Medical History Diarrhea History of asthma History of seizure disorder has had seizures after waking up from dental procedure and tonsillectomy. Most recent surgery 04/2022 Hypertension Obese Rectal bleeding RUQ pain Thyroid activity decreased Surgical History Surgical History H/O dilation and curettage History of tonsillectomy Hx laparoscopic cholecystectomy 10/24/22 Family History Family History Mother Epilepsy Grandparent Epilepsy Other Diabetes mellitus Hypertension Social History Social History Smoking packs per day: 0.5 Smoking cigarettes per day: 10.0 Years smoked: 5 Smoking pack-years: 2.50 Smoking status: Never smoker Tobacco type: cigarettes Second hand tobacco smoke exposure: No Smoking end date: 01/25/22 Alcohol intake: current Alcohol use details: RARE Substance use: current Substance use type: marijuana Other substance usage details: Daily Last use: 10/10/22 Living arrangements: with family Additional living arrangements comments: BOYFRIEND Occupation/Education: occupation Additional occupation/education comments: [employer] Gender identity (if verbalized by the patient): Female Spiritual care concerns: No Meds Home Medications and Allergies Home Medications Medication Instructions Recorded Confirmed Type levothyroxine 75 mcg tablet 75 mcg PO DAILY 04/02/21 11/03/23 History albuterol sulfate 90 mcg/actuation 1 inh inhalation Q4-6H PRN 08/28/22 11/03/23 History breath activated powder inhaler Shortness Of Breath carbamazepine 100 mg 100 mg PO Q12H 09/25/22 11/03/23 History tablet,extended release,12 hr dicyclomine 20 mg tablet See Rx Instructions .Route 11/03/22 11/03/23 Rx .COMPLEX #90 tabs cholestyramine (with sugar) 4 gram See Rx Instructions .Route 12/09/22 11/03/23 Rx oral powder .COMPLEX #378 grams omeprazole 40 mg capsule,delayed 40 mg PO DAILY #30 caps 03/11/23 11/03/23 Rx release Allergies Allergy/AdvReac Type Severity Reaction Status Date / Time Penicillins Allergy Severe HIVES Verified 11/03/23 15:48 amoxicillin Allergy Mild Swelling Verified 11/03/23 15:48 of Lip/Tongue/Throat cephalexin Allergy Mild Swelling Verified 11/03/23 15:48 of Lip/Tongue/Throat plum Allergy Mild Swelling Verified 11/03/23 15:48 of Lip/Tongue/Throat prunes Allergy Mild Swelling Verified 11/03/23 15:48 of Lip/Tongue/Throat Sulfa (Sulfonamide Allergy Mild Swelling Verified 11/03/23 15:48 Antibiotics) of Lip/Tongue/Throat cyproheptadine Allergy Unknown Unknown Verified 11/03/23 15:48 Exam Const: General: comfortable and no acute distress HENMT: Mouth: Yes moist mucous membranes Resp: Effort & Inspection: normal respiratory effort Cardio: Rate: regular rate Rhythm:
--- NOTE | 2023-11-09 10:45 | WPDHPUPDATE1 ---
History and Physical Update Update Date/Time: 11/09/23 10:45 History and Physical has been reviewed, including an updated exam of the patient. There are NO changes in the patient's condition. Risks, benefits, and alternatives have been discussed and questions answered. Patient agrees to proceed with procedure.
[2023-11-09 10:46] VITALS: BP 115/62; PULSE 80; RESP 18; TEMP 36.4; O2SAT 99
--- NOTE | 2023-11-09 11:25 | PM.GYNPNOP ---
COMMISSIONED FIRE OFFICER - A/P Postoperative Procedures: Procedures Operation Date: 11/09/23 12:00 <No data on this case meets the specified criteria> Time Spent With Patient Time: Total time spent is greater than 50% in coordination of care (as documented) at patient's floor/unit and/or counseling patient: Time with patient: 15 - 25 minutes COMMISSIONED FIRE OFFICER- PN:Subj Post-Op Subjective Date/time seen: 11/09/23 11:25 Interval history: Prior to proceeding with surgery, I was informed that the patient's carbamazepine level was low. Patient has a history of seizures following IV sedation and general anesthesia. Discussed with Dr. Cutler of anesthesia who recommends rescheduling procedure after carbamazepine levels improve. Will cancel surgery for today and reschedule after follow up with PCP/neuro. Patient informed of cancellation of procedure and reasons why; given that this is an elective procedure, would not recommend risking further seizures for the procedure. Will call patient to reschedule and refer to PCP.
--- NOTE | 2023-11-09 11:45 | SUR.PREOP ---
1105 PT PROCEEDURE CANCELLED PER DR. VERDUZCO DUE TO LOW TEGRETOL LEVEL AND HISTORY OF SEIZURES POST ANESTH. 1115 PT SPEAKING LOUDLY WITH DR. YEUNG. PT PULLED IV OUT BY HERSELF.
== END 2023-11-09 11:20 | disposition home or self-care (01) ==
PROVIDERS: PCP Family Medicine; Visit Provider Obstetrics & Gynecology
PROC: 0U5B8ZZ Destruction of Endometrium, Via Natural or Artificial Opening Endoscopic (ICD-10-PCS; CPT 58563; principal; 2023-11-09 12:00)
DX: N93.9 Abnormal uterine and vaginal bleeding, unspecified (principal); N84.1 Polyp of cervix uteri; R79.89 Other specified abnormal findings of blood chemistry; G40.909 Epilepsy, unspecified, not intractable, without status epilepticus
CPT/HCPCS: 99213; G0463; J2250; J3010